=== PATIENT | male | born 1960 | race Caucasian/White ===

== ENCOUNTER 2021-08-01 20:49 | Inpatient (IN) | payer BC ==
[2021-08-01 21:35] LABS: Hemoglobin 12.9 g/dL (13.5-17.5); Mean Corpuscular HGB CONC 32.8 g/dL (32.0-36.0); Mean Corpuscular Hemoglobin 29.9 pg (27.0-33.0); Mean Corpuscular Volume 91.2 fl (81.2-95.1); Mean Platelet Volume 11.6 fl (7.4-10.4); Platelet Count 303 10x3/uL (150-450); RBC Distribution Width 12.3 % (11.5-14.5); Red Blood Cell (RBC) Count 4.31 10x6/uL (4.32-5.72)
[2021-08-01] MEDS ORDERED: Benzonatate 100 MG CAP ONE (21:35)
[2021-08-01 21:46] LABS: ALT (SGPT) 124 U/L (8-55); AST (SGOT) 68 U/L (5-34); Albumin 3.6 g/dL (3.5-5.0); Alkaline Phosphatase 110 U/L (40-110); Anion Gap 18 mmol/L (10-20); BUN (Urea Nitrogen) 40 mg/dL (8.4-25.7); Bilirubin, Total 0.9 mg/dL (0.2-1.2); Calc. Creatinine Clearance 0 mL/min (70-130); Calcium 8.7 mg/dL (7.8-10.44); Carbon Dioxide 20 mmol/L (22-29); Chloride 99 mmol/L (98-107); Globulin 3.4 g/dL (2.4-3.5); Glucose 136 mg/dL (70-105); Sodium 132 mmol/L (136-145)
[2021-08-01 22:19] LABS: Band 2 % (5-11); Lymphocytes 10 % (21-51); Monocytes 9 % (0-10); Reactive Lymphocytes 4 % (0-10)
[2021-08-01 22:20] LABS: Neutrophil 75 % (42-75)
[2021-08-01 22:21] LABS: Platelet Morphology Comment Appears Adequate
[2021-08-01 22:22] LABS: Large Platelets SLIGHT; MDiff Complete? YES; RBC Morphology Normal
[2021-08-01] MEDS ORDERED: Furosemide 40 MG/4 ML VIAL ONE (22:39)
[2021-08-01] MEDS ORDERED: Cefepime 2 GM VIAL ONE (22:40)
[2021-08-01 22:43] LABS: SARS-CoV-2 NAA Rapid Test DETECTED (NotDetected)
[2021-08-01] MEDS ORDERED: Senokot S 8.6-50 MG TAB PO PRN (22:53)
[2021-08-01] MEDS ORDERED: Ondansetron PF 4 MG/2 ML Vial IVP PRN (22:53)
[2021-08-01] MEDS ORDERED: Zolpidem Tartrate 5 MG TAB PO PRN (22:53)
[2021-08-01] MEDS ORDERED: Calcium Carbonate 500 MG ChewTAB PO PRN (22:53)
[2021-08-01] MEDS ORDERED: Dextrose 50% Abboject 50 ML SYRINGE SLOW IVP PRN (22:53)
[2021-08-01] MEDS ORDERED: Dextrose 5% in Water 1,000 ML IV PRN (22:53)
[2021-08-01] MEDS ORDERED: Acetaminophen 325 MG TAB PO PRN (22:53)
[2021-08-01] MEDS ORDERED: Ventolin HFA Inhaler 60 PUFF INHALER INH PRN (23:00)
[2021-08-01] MEDS ORDERED: Dexamethasone 10 MG/ML VIAL ONE (23:36)
[2021-08-01 23:59] LABS: Lactic Acid 1.8 mmol/L (0.5-2.2)
[2021-08-02] MEDS: guaiFENesin/Codeine Phosphate 100 mg/10 mg 5 ml UD Cup PO SCH ×5 (00:58→23:01)
[2021-08-02] MEDS ORDERED: Vancomycin HCl 1 GM in Sodium Chloride 0.9% 250 ML 250 ML IVPB SCH (01:00)
[2021-08-02] MEDS ORDERED: Enoxaparin Sodium 120 MG/0.8 ML SYRINGE SC SCH (01:00)
[2021-08-02] MEDS: HYDROcodone/Acetaminophen 5/325 mg Tablet PO PRN ×3 (02:36→17:36)
[2021-08-02 05:19] LABS: Hemoglobin 12.5 g/dL (13.5-17.5); Mean Corpuscular HGB CONC 34.2 g/dL (32.0-36.0); Mean Corpuscular Hemoglobin 30.5 pg (27.0-33.0); Mean Corpuscular Volume 89.3 fl (81.2-95.1); Mean Platelet Volume 11.6 fl (7.4-10.4); Platelet Count 258 10x3/uL (150-450); RBC Distribution Width 12.6 % (11.5-14.5); White Blood Cell (WBC) Count 20.2 10x3/uL (3.5-10.5)
[2021-08-02 05:24] LABS: Bilirubin Neg (Negative); Blood, Urine 250 (Negative); Clarity Slightly Cloudy (Clear); Glucose, Urine (Dipstick) Normal (Negative); Ketone, Urine 5 mg/dL (Negative); Leukocyte Negative (Negative); Nitrite Negative (Negative); Protein, Urine (Dipstick) 30 mg/dl (Neg-Trace); Urobilinogen Normal mg/dL (Less than 2)
[2021-08-02 05:29] LABS: ALT (SGPT) 101 U/L (8-55); AST (SGOT) 59 U/L (5-34); Albumin 3.3 g/dL (3.5-5.0); Alkaline Phosphatase 106 U/L (40-110); Anion Gap 21 mmol/L (10-20); BUN (Urea Nitrogen) 39 mg/dL (8.4-25.7); CRP (Inflammatory) 19.74 mg/dL (= or < 0.5); Calc. Creatinine Clearance 158 mL/min (70-130); Calcium 8.4 mg/dL (7.8-10.44); Carbon Dioxide 16 mmol/L (22-29); Cardiac Risk 5.3 (Less than 4.5); Chloride 101 mmol/L (98-107); Cholesterol 137 mg/dl (< 200 Desired); Globulin 3.3 g/dL (2.4-3.5); Glucose 175 mg/dL (70-105); HDL Cholesterol 26 mg/dL (>60 Neg Risk); LDL Cholesterol, Calculated 88 mg/dL; Potassium 5.2 mmol/L (3.5-5.1); Protein, Total 6.6 g/dL (6.0-8.3); Sodium 133 mmol/L (136-145); Triglycerides 114 mg/dL (Less than 150)
[2021-08-02 05:44] LABS: RBC/HPF 21-50 HPF (0-3)
[2021-08-02 05:46] LABS: Bacteria/HPF 2+ HPF (None Seen); Mucous/LPF 4+ LPF (<2+); Squamous Epithelial 0-3 HPF (0-3)
[2021-08-02 05:51] LABS: Legionella Urinary Ag Negative (Negative)
[2021-08-02 05:52] LABS: Strep pneumo Urine Ag NEGATIVE (NEGATIVE)
[2021-08-02 05:56] LABS: CKMB 3.3 ng/mL (0-6.6)
[2021-08-02 07:28] LABS: Band 4 % (5-11); Lymphocytes 8 % (21-51); Monocytes 9 % (0-10); Myelocyte 2 % (0-0); Reactive Lymphocytes 3 % (0-10)
[2021-08-02 07:29] LABS: Hypersemented Neutrophil SLIGHT; Large Platelets SLIGHT; Neutrophil 74 % (42-75); Platelet Morphology Comment Appears Adequate
[2021-08-02 07:30] LABS: MDiff Complete? YES; RBC Morphology Normal
[2021-08-02] MEDS: Enoxaparin Sodium 120 MG/0.8 ML SYRINGE SC SCH ×2 (08:09→21:00)
[2021-08-02] MEDS: Furosemide 20 MG/2 ML VIAL SLOW IVP SCH (08:09)
[2021-08-02] MEDS: Cefepime 1 GM in Sodium Chloride 0.9% 100 ML IVPB SCH ×2 (08:10→20:58)
[2021-08-02] MEDS: Carvedilol 3.125 MG TAB PO SCH ×2 (08:10→17:35)
[2021-08-02] MEDS: Benzonatate 100 MG CAP PO SCH ×3 (08:10→20:58)
[2021-08-02] MEDS: Aspirin 81 mg Enteric Coated Tablet PO SCH (08:10)
[2021-08-02] MEDS: Zinc Gluconate 50 MG TAB PO SCH (08:12)
[2021-08-02] MEDS ORDERED: Cholecalciferol 1,000 UNITS (25 MCG) TAB PO SCH ×2 (09:00→13:00)
[2021-08-02] MEDS ORDERED: Ascorbic Acid 500 mg Chewable Tablet PO SCH (09:00)
[2021-08-02 09:11] LABS: Hemoglobin A1c 6.6 % (4.0-6.0)
[2021-08-02] MEDS: HumaLOG 300 UNITS/3 ML VIAL SC PRN ×3 (09:30→21:30)
[2021-08-02] MEDS ORDERED: BARICITINIB 2 MG TAB PO SCH (10:00)
[2021-08-02] MEDS: Guaifenesin DM 100-10/5 ML UDCUP PO PRN ×2 (11:25→17:35)
[2021-08-02] MEDS: VANCOMYCIN 2 GRAM/400 ML BAG 2 GM in Premix Bag 1 BAG IVPB SCH ×2 (11:50→23:01)
[2021-08-02] MEDS ORDERED: Fenofibrate Nanocrystallized 145 MG TAB PO SCH (12:30)
[2021-08-02] MEDS ORDERED: Budesonide 0.5 MG/2 ML NEB NEB SCH ×2 (13:00→18:30)
[2021-08-02] MEDS: Ascorbic Acid 500 mg Chewable Tablet PO SCH ×2 (15:02→20:58)
[2021-08-02] MEDS: Dexamethasone 20 MG/5 ML VIAL SLOW IVP SCH ×2 (15:02→20:59)
[2021-08-02] MEDS ORDERED: Phytonadione 10 MG in Sodium Chloride 0.9% 50 ML IVPB SCH (17:30)
[2021-08-02] MEDS: Mometasone 100 MCG/PUFF (1 INHALER) INH SCH (18:30)
[2021-08-02] MEDS ORDERED: Budesonide 0.5 MG/2 ML NEB INH SCH (18:30)
[2021-08-02] MEDS ORDERED: Dexamethasone 4 mg/ml Vial SLOW IVP SCH (21:00)
[2021-08-03] MEDS: guaiFENesin/Codeine Phosphate 100 mg/10 mg 5 ml UD Cup PO SCH ×6 (01:14→21:33)
[2021-08-03] MEDS: Cepastat Lozenges 1 LOZ PO PRN (01:34)
[2021-08-03 03:48] LABS: ALT (SGPT) 91 U/L (8-55); AST (SGOT) 49 U/L (5-34); Albumin 3.1 g/dL (3.5-5.0); Alkaline Phosphatase 93 U/L (40-110); Anion Gap 16 mmol/L (10-20); BUN (Urea Nitrogen) 28 mg/dL (8.4-25.7); Bilirubin, Total 0.8 mg/dL (0.2-1.2); Calc. Creatinine Clearance 198 mL/min (70-130); Calcium 8.1 mg/dL (7.8-10.44); Carbon Dioxide 20 mmol/L (22-29); Chloride 100 mmol/L (98-107); Globulin 2.9 g/dL (2.4-3.5); Glucose 190 mg/dL (70-105); Potassium 4.6 mmol/L (3.5-5.1); Sodium 131 mmol/L (136-145)
[2021-08-03] MEDS: Mometasone 100 MCG/PUFF (1 INHALER) INH SCH ×2 (06:40→18:40)
[2021-08-03] MEDS: HumaLOG 300 UNITS/3 ML VIAL SC PRN ×2 (06:46→17:35)
[2021-08-03] MEDS: BARICITINIB 2 MG TAB PO SCH (09:37)
[2021-08-03] MEDS: Zinc Gluconate 50 MG TAB PO SCH (09:37)
[2021-08-03] MEDS: Benzonatate 100 MG CAP PO SCH ×3 (09:38→20:40)
[2021-08-03] MEDS: Cholecalciferol 1,000 UNITS (25 MCG) TAB PO SCH (09:38)
[2021-08-03] MEDS: Aspirin 81 mg Enteric Coated Tablet PO SCH (09:38)
[2021-08-03] MEDS: Ascorbic Acid 500 mg Chewable Tablet PO SCH ×3 (09:38→20:40)
[2021-08-03] MEDS: Carvedilol 3.125 MG TAB PO SCH ×2 (09:39→17:26)
[2021-08-03] MEDS: Cefepime 1 GM in Sodium Chloride 0.9% 100 ML IVPB SCH ×2 (09:39→21:33)
[2021-08-03] MEDS: Dexamethasone 20 MG/5 ML VIAL SLOW IVP SCH ×3 (09:39→20:44)
[2021-08-03] MEDS: Furosemide 20 MG/2 ML VIAL SLOW IVP SCH (09:39)
[2021-08-03] MEDS: Enoxaparin Sodium 120 MG/0.8 ML SYRINGE SC SCH ×2 (09:40→20:44)
[2021-08-03] MEDS: Fenofibrate Nanocrystallized 145 MG TAB PO SCH (09:43)
[2021-08-03] MEDS: VANCOMYCIN 1.75 GM/350 ML BAG 1.75 GM in Premix Bag 1 BAG IVPB SCH ×2 (13:02→22:00)
[2021-08-03] MEDS: VANCOMYCIN 2 GRAM/400 ML BAG 2 GM in Premix Bag 1 BAG IVPB SCH (13:05)
[2021-08-03] MEDS: Fluticasone Propionate Nasal Spray 16 gm Bottle NASAL SCH (15:04)
[2021-08-03] MEDS: Acetylcysteine 800 MG/4 ML VIAL PO SCH (20:39)
[2021-08-03] MEDS: Ipratropium Bromide 0.06% Nasal Inhaler 15ml EA NARE SCH (20:40)
[2021-08-04] MEDS: guaiFENesin/Codeine Phosphate 100 mg/10 mg 5 ml UD Cup PO SCH ×6 (00:23→21:47)
[2021-08-04 04:11] LABS: #Monocytes 1.3 10x3/uL (0.0-1.1); #Neutrophils 13.6 10x3/uL (1.5-8.4); %Basophils 0.1 % (0.0-2.0); %Lymphocytes 7.4 % (18.0-47.0); %Monocytes 7.8 % (0.0-10.0); %Neutrophils 82.9 % (40.0-75.0); Hemoglobin 11.6 g/dL (13.5-17.5); Mean Corpuscular HGB CONC 33.1 g/dL (32.0-36.0); Mean Corpuscular Hemoglobin 29.7 pg (27.0-33.0); Mean Corpuscular Volume 89.5 fl (81.2-95.1); Mean Platelet Volume 11.6 fl (7.4-10.4); Platelet Count 314 10x3/uL (150-450); RBC Distribution Width 11.9 % (11.5-14.5); Red Blood Cell (RBC) Count 3.91 10x6/uL (4.32-5.72); White Blood Cell (WBC) Count 16.4 10x3/uL (3.5-10.5)
[2021-08-04 04:26] LABS: Anion Gap 13 mmol/L (10-20); BUN (Urea Nitrogen) 25 mg/dL (8.4-25.7); Calc. Creatinine Clearance 196 mL/min (70-130); Calcium 8.3 mg/dL (7.8-10.44); Carbon Dioxide 23 mmol/L (22-29); Chloride 102 mmol/L (98-107); Glucose 174 mg/dL (70-105); Potassium 5.1 mmol/L (3.5-5.1); Sodium 133 mmol/L (136-145)
[2021-08-04] MEDS: VANCOMYCIN 1.75 GM/350 ML BAG 1.75 GM in Premix Bag 1 BAG IVPB SCH ×3 (05:10→23:32)
[2021-08-04] MEDS: Mometasone 100 MCG/PUFF (1 INHALER) INH SCH (06:35)
[2021-08-04] MEDS: BARICITINIB 2 MG TAB PO SCH (08:33)
[2021-08-04] MEDS: Zinc Gluconate 50 MG TAB PO SCH (08:34)
[2021-08-04] MEDS: Cholecalciferol 1,000 UNITS (25 MCG) TAB PO SCH (08:34)
[2021-08-04] MEDS: Carvedilol 3.125 MG TAB PO SCH ×2 (08:34→16:04)
[2021-08-04] MEDS: Ascorbic Acid 500 mg Chewable Tablet PO SCH ×3 (08:34→22:14)
[2021-08-04] MEDS: Fenofibrate Nanocrystallized 145 MG TAB PO SCH (08:35)
[2021-08-04] MEDS: Benzonatate 100 MG CAP PO SCH ×3 (08:35→22:14)
[2021-08-04] MEDS: Aspirin 81 mg Enteric Coated Tablet PO SCH (08:35)
[2021-08-04] MEDS: Acetylcysteine 800 MG/4 ML VIAL PO SCH ×2 (08:36→22:15)
[2021-08-04] MEDS: Furosemide 20 MG/2 ML VIAL SLOW IVP SCH (08:36)
[2021-08-04] MEDS: Enoxaparin Sodium 120 MG/0.8 ML SYRINGE SC SCH (08:36)
[2021-08-04] MEDS: Dexamethasone 20 MG/5 ML VIAL SLOW IVP SCH (08:36)
[2021-08-04] MEDS: Cefepime 1 GM in Sodium Chloride 0.9% 100 ML IVPB SCH ×2 (08:37→22:14)
[2021-08-04] MEDS: Fluticasone Propionate Nasal Spray 16 gm Bottle NASAL SCH (08:38)
[2021-08-04 13:15] LABS: Vancomycin, Trough 17.5 ug/mL
[2021-08-04] MEDS: HumaLOG 300 UNITS/3 ML VIAL SC PRN (16:04)
[2021-08-04] MEDS ORDERED: Chloraseptic Spray 180 ml Bottle PO PRN (19:17)
[2021-08-04] MEDS: Apixaban 5 MG TAB PO SCH (22:14)
[2021-08-04] MEDS: Dexamethasone 4 mg/ml Vial SLOW IVP SCH (22:15)
[2021-08-05] MEDS: guaiFENesin/Codeine Phosphate 100 mg/10 mg 5 ml UD Cup PO SCH ×6 (00:51→20:30)
[2021-08-05] MEDS: HumaLOG 300 UNITS/3 ML VIAL SC PRN ×3 (05:18→18:17)
[2021-08-05] MEDS: VANCOMYCIN 1.75 GM/350 ML BAG 1.75 GM in Premix Bag 1 BAG IVPB SCH ×2 (05:18→11:51)
[2021-08-05 06:11] LABS: ALT (SGPT) 82 U/L (8-55); AST (SGOT) 38 U/L (5-34); Albumin 3.4 g/dL (3.5-5.0); Alkaline Phosphatase 106 U/L (40-110); Anion Gap 15 mmol/L (10-20); BUN (Urea Nitrogen) 22 mg/dL (8.4-25.7); Bilirubin, Total 0.7 mg/dL (0.2-1.2); CRP (Inflammatory) 2.63 mg/dL (= or < 0.5); Calc. Creatinine Clearance 195 mL/min (70-130); Calcium 8.4 mg/dL (7.8-10.44); Carbon Dioxide 20 mmol/L (22-29); Chloride 103 mmol/L (98-107); Glucose 179 mg/dL (70-105); Potassium 5.4 mmol/L (3.5-5.1); Protein, Total 6.4 g/dL (6.0-8.3); Sodium 133 mmol/L (136-145)
[2021-08-05 06:13] LABS: #Basophils 0.1 10x3/uL (0.0-0.2); #Monocytes 1.2 10x3/uL (0.0-1.1); #Neutrophils 15.6 10x3/uL (1.5-8.4); %Basophils 0.3 % (0.0-2.0); %Eosinophils 0.1 % (0.0-6.0); %Lymphocytes 5.7 % (18.0-47.0); %Monocytes 6.4 % (0.0-10.0); %Neutrophils 84.8 % (40.0-75.0); Hemoglobin 12.6 g/dL (13.5-17.5); Mean Corpuscular HGB CONC 33.5 g/dL (32.0-36.0); Mean Corpuscular Hemoglobin 30.1 pg (27.0-33.0); Mean Platelet Volume 11.7 fl (7.4-10.4); Platelet Count 314 10x3/uL (150-450); RBC Distribution Width 12.1 % (11.5-14.5); Red Blood Cell (RBC) Count 4.18 10x6/uL (4.32-5.72); White Blood Cell (WBC) Count 18.4 10x3/uL (3.5-10.5)
[2021-08-05] MEDS: Mometasone 100 MCG/PUFF (1 INHALER) INH SCH ×3 (06:51→20:30)
[2021-08-05] MEDS: Dexamethasone 4 mg/ml Vial SLOW IVP SCH ×2 (09:22→20:31)
[2021-08-05] MEDS: Furosemide 20 MG/2 ML VIAL SLOW IVP SCH (09:22)
[2021-08-05] MEDS: Fenofibrate Nanocrystallized 145 MG TAB PO SCH (09:23)
[2021-08-05] MEDS: Apixaban 5 MG TAB PO SCH ×2 (09:23→20:30)
[2021-08-05] MEDS: Benzonatate 100 MG CAP PO SCH ×3 (09:23→20:32)
[2021-08-05] MEDS: Carvedilol 3.125 MG TAB PO SCH ×2 (09:23→16:45)
[2021-08-05] MEDS: Cholecalciferol 1,000 UNITS (25 MCG) TAB PO SCH (09:23)
[2021-08-05] MEDS: Aspirin 81 mg Enteric Coated Tablet PO SCH (09:23)
[2021-08-05] MEDS: Zinc Gluconate 50 MG TAB PO SCH (09:23)
[2021-08-05] MEDS: Ascorbic Acid 500 mg Chewable Tablet PO SCH ×3 (09:24→20:31)
[2021-08-05] MEDS: BARICITINIB 2 MG TAB PO SCH (09:24)
[2021-08-05] MEDS: Cefepime 1 GM in Sodium Chloride 0.9% 100 ML IVPB SCH ×2 (09:26→20:31)
[2021-08-05] MEDS: Acetylcysteine 800 MG/4 ML VIAL PO SCH ×2 (09:34→21:02)
[2021-08-05] MEDS: Fluticasone Propionate Nasal Spray 16 gm Bottle NASAL SCH (10:10)
[2021-08-05 12:42] LABS: Vancomycin, Trough 22.3 ug/mL
[2021-08-05] MEDS: VANCOMYCIN 1.25 GM/250 ML BAG 1.25 GM in Premix Bag 1 BAG IVPB SCH ×2 (14:04→22:12)
[2021-08-05] MEDS ORDERED: HumaLOG 300 UNITS/3 ML VIAL SC PRN (15:17)
[2021-08-05 16:15] LABS: Potassium 4.7 mmol/L (3.5-5.1)
[2021-08-05] MEDS: Milk Of Magnesia 30 ML UDCUP PO PRN (16:46)
[2021-08-06] MEDS: guaiFENesin/Codeine Phosphate 100 mg/10 mg 5 ml UD Cup PO SCH ×7 (00:12→23:49)
[2021-08-06] MEDS: VANCOMYCIN 1.25 GM/250 ML BAG 1.25 GM in Premix Bag 1 BAG IVPB SCH (05:32)
[2021-08-06] MEDS: HumaLOG 300 UNITS/3 ML VIAL SC PRN ×2 (05:55→17:10)
[2021-08-06] MEDS: Fluticasone Propionate Nasal Spray 16 gm Bottle NASAL SCH (07:00)
[2021-08-06] MEDS: Mometasone 100 MCG/PUFF (1 INHALER) INH SCH ×2 (07:23→18:50)
[2021-08-06] MEDS: Furosemide 20 MG/2 ML VIAL SLOW IVP SCH (09:57)
[2021-08-06] MEDS: Dexamethasone 4 mg/ml Vial SLOW IVP SCH (09:57)
[2021-08-06] MEDS: Cefepime 1 GM in Sodium Chloride 0.9% 100 ML IVPB SCH ×2 (10:00→20:35)
[2021-08-06] MEDS: Acetylcysteine 800 MG/4 ML VIAL PO SCH ×2 (10:05→20:35)
[2021-08-06] MEDS: Apixaban 5 MG TAB PO SCH ×2 (10:08→20:34)
[2021-08-06] MEDS: BARICITINIB 2 MG TAB PO SCH (10:08)
[2021-08-06] MEDS: Benzonatate 100 MG CAP PO SCH ×3 (10:08→20:35)
[2021-08-06] MEDS: Cholecalciferol 1,000 UNITS (25 MCG) TAB PO SCH (10:09)
[2021-08-06] MEDS: Zinc Gluconate 50 MG TAB PO SCH (10:09)
[2021-08-06] MEDS: Ascorbic Acid 500 mg Chewable Tablet PO SCH ×3 (10:09→20:35)
[2021-08-06] MEDS: Fenofibrate Nanocrystallized 145 MG TAB PO SCH (10:09)
[2021-08-06] MEDS: Aspirin 81 mg Enteric Coated Tablet PO SCH (10:10)
[2021-08-06] MEDS: Carvedilol 3.125 MG TAB PO SCH ×2 (10:10→16:36)
[2021-08-06] MEDS ORDERED: VANCOMYCIN 1.25 GM/250 ML BAG 1.25 GM in Premix Bag 1 BAG IVPB SCH (21:00)
[2021-08-07] MEDS: guaiFENesin/Codeine Phosphate 100 mg/10 mg 5 ml UD Cup PO SCH ×5 (04:11→22:02)
[2021-08-07] MEDS: Mometasone 100 MCG/PUFF (1 INHALER) INH SCH ×2 (06:35→19:30)
[2021-08-07 06:46] LABS: ALT (SGPT) 88 U/L (8-55); AST (SGOT) 32 U/L (5-34); Albumin 3.2 g/dL (3.5-5.0); Alkaline Phosphatase 97 U/L (40-110); Bilirubin, Direct 0.3 mg/dL (0.1-0.3); Bilirubin, Total 0.6 mg/dL (0.2-1.2); Protein, Total 6.5 g/dL (6.0-8.3)
[2021-08-07] MEDS: Cefepime 1 GM in Sodium Chloride 0.9% 100 ML IVPB SCH ×2 (08:58→22:03)
[2021-08-07] MEDS: Acetylcysteine 800 MG/4 ML VIAL PO SCH ×2 (08:59→22:02)
[2021-08-07] MEDS: Cholecalciferol 1,000 UNITS (25 MCG) TAB PO SCH (09:00)
[2021-08-07] MEDS ORDERED: Dexamethasone 20 MG/5 ML VIAL SLOW IVP SCH (09:00)
[2021-08-07] MEDS: BARICITINIB 2 MG TAB PO SCH (09:01)
[2021-08-07] MEDS: Apixaban 5 MG TAB PO SCH ×2 (09:01→22:03)
[2021-08-07] MEDS: Carvedilol 3.125 MG TAB PO SCH ×2 (09:01→20:01)
[2021-08-07] MEDS: Benzonatate 100 MG CAP PO SCH ×3 (09:01→22:03)
[2021-08-07] MEDS: Ascorbic Acid 500 mg Chewable Tablet PO SCH ×2 (09:02→22:03)
[2021-08-07] MEDS: Zinc Gluconate 50 MG TAB PO SCH (09:02)
[2021-08-07] MEDS: Furosemide 20 MG/2 ML VIAL SLOW IVP SCH (09:02)
[2021-08-07] MEDS: Aspirin 81 mg Enteric Coated Tablet PO SCH (09:02)
[2021-08-07] MEDS: Fluticasone Propionate Nasal Spray 16 gm Bottle NASAL SCH (09:25)
[2021-08-07] MEDS: Fenofibrate Nanocrystallized 145 MG TAB PO SCH (10:30)
[2021-08-07] MEDS ORDERED: ALPRAZolam 0.25 MG TAB PO PRN (13:40)
[2021-08-07] MEDS: Guaifenesin DM 100-10/5 ML UDCUP PO PRN (14:29)
[2021-08-07] MEDS: HYDROcodone/Acetaminophen 5/325 mg Tablet PO PRN ×2 (14:40→22:02)
[2021-08-08] MEDS: guaiFENesin/Codeine Phosphate 100 mg/10 mg 5 ml UD Cup PO SCH ×6 (01:13→21:58)
[2021-08-08] MEDS: HYDROcodone/Acetaminophen 5/325 mg Tablet PO PRN ×3 (05:58→20:47)
[2021-08-08 06:02] LABS: Anion Gap 11 mmol/L (10-20); BUN (Urea Nitrogen) 18 mg/dL (8.4-25.7); Calc. Creatinine Clearance 195 mL/min (70-130); Calcium 8.5 mg/dL (7.8-10.44); Carbon Dioxide 28 mmol/L (22-29); Chloride 100 mmol/L (98-107); Glucose 140 mg/dL (70-105); Potassium 4.4 mmol/L (3.5-5.1); Sodium 135 mmol/L (136-145)
[2021-08-08 06:06] LABS: Hemoglobin 12.5 g/dL (13.5-17.5); Mean Corpuscular HGB CONC 33.1 g/dL (32.0-36.0); Mean Corpuscular Hemoglobin 30.2 pg (27.0-33.0); Mean Corpuscular Volume 91.3 fl (81.2-95.1); Mean Platelet Volume 11.2 fl (7.4-10.4); Platelet Count 406 10x3/uL (150-450); RBC Distribution Width 12.5 % (11.5-14.5); Red Blood Cell (RBC) Count 4.14 10x6/uL (4.32-5.72)
[2021-08-08] MEDS: HumaLOG 300 UNITS/3 ML VIAL SC PRN (06:49)
[2021-08-08] MEDS: Mometasone 100 MCG/PUFF (1 INHALER) INH SCH ×2 (07:00→18:55)
[2021-08-08] MEDS ORDERED: Dexamethasone 4 MG TAB PO SCH (09:00)
[2021-08-08] MEDS: Acetylcysteine 800 MG/4 ML VIAL PO SCH ×2 (10:09→21:58)
[2021-08-08] MEDS: Apixaban 5 MG TAB PO SCH ×2 (10:10→21:58)
[2021-08-08] MEDS: Carvedilol 3.125 MG TAB PO SCH ×2 (10:10→15:23)
[2021-08-08] MEDS: Cholecalciferol 1,000 UNITS (25 MCG) TAB PO SCH (10:10)
[2021-08-08] MEDS: Ascorbic Acid 500 mg Chewable Tablet PO SCH ×2 (10:11→21:58)
[2021-08-08] MEDS: BARICITINIB 2 MG TAB PO SCH (10:11)
[2021-08-08] MEDS: Benzonatate 100 MG CAP PO SCH ×3 (10:12→21:58)
[2021-08-08] MEDS: Cefepime 1 GM in Sodium Chloride 0.9% 100 ML IVPB SCH ×2 (10:12→21:58)
[2021-08-08] MEDS: Fluticasone Propionate Nasal Spray 16 gm Bottle NASAL SCH (10:13)
[2021-08-08] MEDS: Fenofibrate Nanocrystallized 145 MG TAB PO SCH (10:14)
[2021-08-08] MEDS: Zinc Gluconate 50 MG TAB PO SCH (10:26)
[2021-08-08] MEDS: Furosemide 20 MG TAB PO SCH (15:23)
[2021-08-08] MEDS: Milk Of Magnesia 30 ML UDCUP PO PRN (20:48)
[2021-08-08] MEDS ORDERED: Milk Of Magnesia 30 ML UDCUP ONE (20:48)
[2021-08-09] MEDS: guaiFENesin/Codeine Phosphate 100 mg/10 mg 5 ml UD Cup PO SCH ×7 (05:39→22:01)
[2021-08-09] MEDS: Mometasone 100 MCG/PUFF (1 INHALER) INH SCH ×2 (07:05→19:22)
[2021-08-09] MEDS: Fluticasone Propionate Nasal Spray 16 gm Bottle NASAL SCH (09:30)
[2021-08-09] MEDS: Apixaban 5 MG TAB PO SCH ×2 (09:36→21:59)
[2021-08-09] MEDS: Zinc Gluconate 50 MG TAB PO SCH (09:37)
[2021-08-09] MEDS: Ascorbic Acid 500 mg Chewable Tablet PO SCH ×2 (09:37→21:59)
[2021-08-09] MEDS: Dexamethasone 4 MG TAB PO SCH (09:37)
[2021-08-09] MEDS: Cefepime 1 GM in Sodium Chloride 0.9% 100 ML IVPB SCH ×2 (09:38→21:59)
[2021-08-09] MEDS: Benzonatate 100 MG CAP PO SCH ×3 (09:38→21:59)
[2021-08-09] MEDS: Cholecalciferol 1,000 UNITS (25 MCG) TAB PO SCH (09:38)
[2021-08-09] MEDS: Acetylcysteine 800 MG/4 ML VIAL PO SCH ×2 (09:39→21:59)
[2021-08-09] MEDS: BARICITINIB 2 MG TAB PO SCH (09:50)
[2021-08-09] MEDS: Fenofibrate Nanocrystallized 145 MG TAB PO SCH (09:50)
[2021-08-09] MEDS: Carvedilol 3.125 MG TAB PO SCH ×2 (09:51→16:27)
[2021-08-09] MEDS ORDERED: Fluconazole 100 MG TAB PO SCH (11:00)
[2021-08-09] MEDS: Nystatin 500,000 UNITS/5 ML UDCUP SSW SCH ×3 (11:55→21:59)
[2021-08-09] MEDS: Furosemide 20 MG TAB PO SCH (11:55)
[2021-08-09] MEDS: Cepastat Lozenges 1 LOZ PO PRN (11:56)
[2021-08-09] MEDS ORDERED: HYDROcodone/Acetaminophen 5/325 mg Tablet PO PRN (17:27)
[2021-08-10] MEDS: guaiFENesin/Codeine Phosphate 100 mg/10 mg 5 ml UD Cup PO SCH ×3 (04:15→12:00)
[2021-08-10 05:08] LABS: ALT (SGPT) 81 U/L (8-55); AST (SGOT) 22 U/L (5-34); Albumin 3.5 g/dL (3.5-5.0); Alkaline Phosphatase 148 U/L (40-110); Bilirubin, Direct 0.2 mg/dL (0.1-0.3); Bilirubin, Total 0.4 mg/dL (0.2-1.2); Protein, Total 6.9 g/dL (6.0-8.3)
[2021-08-10 05:31] VITALS: BMI 40.3
[2021-08-10] MEDS: Mometasone 100 MCG/PUFF (1 INHALER) INH SCH (08:23)
[2021-08-10] MEDS: Ipratropium Bromide 0.06% Nasal Inhaler 15ml EA NARE SCH ×3 (08:30→09:54)
[2021-08-10] MEDS ORDERED: Fluconazole 100 MG TAB PO SCH (09:00)
[2021-08-10] MEDS: Benzonatate 100 MG CAP PO SCH (09:17)
[2021-08-10] MEDS: BARICITINIB 2 MG TAB PO SCH (09:17)
[2021-08-10] MEDS: Apixaban 5 MG TAB PO SCH (09:17)
[2021-08-10] MEDS: Nystatin 500,000 UNITS/5 ML UDCUP SSW SCH (09:17)
[2021-08-10] MEDS: Cholecalciferol 1,000 UNITS (25 MCG) TAB PO SCH (09:17)
[2021-08-10] MEDS: Ascorbic Acid 500 mg Chewable Tablet PO SCH (09:17)
[2021-08-10] MEDS: Carvedilol 3.125 MG TAB PO SCH (09:17)
[2021-08-10] MEDS: Acetylcysteine 800 MG/4 ML VIAL PO SCH (09:18)
[2021-08-10] MEDS: Zinc Gluconate 50 MG TAB PO SCH (09:18)
[2021-08-10] MEDS: Dexamethasone 4 MG TAB PO SCH (09:18)
[2021-08-10] MEDS: Cefepime 1 GM in Sodium Chloride 0.9% 100 ML IVPB SCH (09:19)
[2021-08-10] MEDS: Fluticasone Propionate Nasal Spray 16 gm Bottle NASAL SCH (09:21)
[2021-08-10] MEDS: Fenofibrate Nanocrystallized 145 MG TAB PO SCH (09:27)
[2021-08-10 12:25] VITALS: BP 122/65; TEMP 98.1
[2021-08-10] MEDS: Furosemide 20 MG TAB PO SCH (12:30)
[2021-08-11] MEDS ORDERED: Ascorbic Acid 500 mg Chewable Tablet PO SCH (09:00)
== END 2021-08-10 18:00 | disposition home or self-care (01) | DRG 871 ==
LOC: CSHERS 20:49 → CSHICU 22:57 → CSHTELE 08-04 21:21
PROVIDERS: ADMIT Student in an Organized Health Care Education/Training Program; ATTEND Internal Medicine
PROC: 8E0ZXY6 Isolation (ICD-10-PCS; 2021-08-01)
PROC: XW0DXM6 Introduction of Baricitinib into Mouth and Pharynx, External Approach, New Technology Group 6 (ICD-10-PCS; principal; 2021-08-02)
DX: A41.9 Sepsis, unspecified organism (principal); U07.1 COVID-19; J12.82 Pneumonia due to coronavirus disease 2019; J96.01 Acute respiratory failure with hypoxia; J15.9 Unspecified bacterial pneumonia; I26.99 Other pulmonary embolism without acute cor pulmonale; Z68.41 Body mass index [BMI] 40.0-44.9, adult; E87.2 Acidosis; I82.403 Acute embolism and thrombosis of unspecified deep veins of lower extremity, bilateral; I50.42 Chronic combined systolic (congestive) and diastolic (congestive) heart failure; E66.01 Morbid (severe) obesity due to excess calories; R77.8 Other specified abnormalities of plasma proteins; R73.03 Prediabetes; G93.3 Postviral and related fatigue syndromes; T38.0X5A Adverse effect of glucocorticoids and synthetic analogues, initial encounter; D72.829 Elevated white blood cell count, unspecified; R65.20 Severe sepsis without septic shock; F17.210 Nicotine dependence, cigarettes, uncomplicated; Z98.890 Other specified postprocedural states; Z71.6 Tobacco abuse counseling
CPT/HCPCS: 36415; 36416; 51702; 71045; 80048; 80053; 80061; 80076; 80202; 81001; 82553; 83036; 83605; 83735; 83880; 84145; 84484; 85025; 85027; 85379; 86140; 87040; 87449; 87899; 93005; 93010; 93306; 93970; 94640; 94760; 96365; 96367; 96375; J0692; J1100; J1650; J1815; J1940; J3370; J3490; J7050; J8540; U0002